=== PATIENT | female | born 1995 | race Hispanic/Latino ===

== ENCOUNTER 2016-12-26 13:00 | Emergency (ER) | payer OTHER ==
[~2016-12-26] VITALS: Ht 157.5 cm; Wt 90.7 kg
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
[2016-12-26 13:43] LABS: BILIRUBIN,URINE NEGATIVE (NEGATIVE); KETONES,URINE NEGATIVE (NEGATIVE); LEUKOCYTE ESTERASE ,URINE 2+ (NEGATIVE); NITRITE,URINE NEGATIVE (NEGATIVE); PH,URINE 6 (5-9); PROTEIN,URINE NEGATIVE (NEGATIVE); UROBILINOGEN,URINE NORMAL (NORMAL)
[2016-12-26] MEDS ORDERED: IOHEXOL 350 MG/ML 100 ML (OMNIPAQUE 350) VIAL IV ONE (13:45)
[2016-12-26] MEDS ORDERED: NS 100 ML (IVPB) BAG IV ONE (13:45)
[2016-12-26 13:52] LABS: YEAST,URINE FEW /HPF
--- NOTE | 2016-12-26 14:09 | Diagnostic Imaging Report ---
INDICATION: Chest pain. EXAMINATION: AP and lateral chest. FINDINGS: The heart size and pulmonary vascularity are normal. The lungs are clear. There are no effusions or pneumothoraces. IMPRESSION: Negative chest. Dictated by: Dictated on workstation # [id number]
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
[2016-12-26] MEDS ORDERED: SULF1TAB35 PO (15:02)
[2016-12-26] MEDS ORDERED: FLUC150T PO (15:02)
[2016-12-26 15:08] VITALS: BP 112/78
== END 2016-12-26 15:07 | disposition home or self-care (01) ==
LOC: ER 13:03
DX: N30.90 Cystitis, unspecified without hematuria (principal); S30.1XXA Contusion of abdominal wall, initial encounter; K76.0 Fatty (change of) liver, not elsewhere classified; R91.8 Other nonspecific abnormal finding of lung field; V43.62XA Car passenger injured in collision with other type car in traffic accident, initial encounter; Y92.414 Local residential or business street as the place of occurrence of the external cause; Y99.8 Other external cause status
CPT/HCPCS: 71020; 74177; 81000; 84703; 87088

== ENCOUNTER → 2017-06-04 | Outpatient (CLI) | payer OTHER ==
[~2017-06-04] MED LIST: FLUC150T PO; SULF1TAB35 PO
--- NOTE | 2017-06-04 16:44 | Diagnostic Imaging Report ---
PROCEDURE: CT chest without contrast. TECHNIQUE: Multiple contiguous axial images were obtained through the chest without the use of intravenous contrast. INDICATION: Pulmonary nodules. Correlation with CT abdomen of 12/26/16. FINDINGS: There is nodule seen in the posterior aspect of the right lower lobe measuring 3 mm, noted on previous abdominal CT from December 2016. This appears to have a calcified component at this point suggestive of a calcified granuloma. This is probably related to a prior infection. No other suspicious nodule is seen. No significant consolidation or mass. The heart size is normal. No pericardial or pleural effusion. Anterior mediastinal soft tissue density is consistent with thymic tissue commonly seen at the patient's age. The hilar vessels are not opacified on this unenhanced exam with no definite hilar mass seen. The osseous structures appear grossly unremarkable. Sections in the upper abdomen appear grossly unremarkable. IMPRESSION: No significant abnormality. Dictated by: Dictated on workstation # [id number]
== END ==
LOC: RAD 14:54
PROVIDERS: ATTEND Family Medicine
DX: R91.8 Other nonspecific abnormal finding of lung field (principal)
CPT/HCPCS: 71250